=== PATIENT | female | born 1955 | race Caucasian/White ===

== ENCOUNTER → 2018-06-23 | Outpatient (CLI) | payer BC ==
[~2018-06-23] MED LIST: BAYER ASPIRIN C81 MG PO; CLINDAMYCIN HC300 MG PO; LEVOTHYROXINE50 MCG PO; LIPITOR40 MG PO; LISINOPRIL20 MG PO; MULTIVITAMIN PO; NEURONTIN300 MG PO; QUNOL; VICODIN 5/500 505 MG PO; VICODIN 500 MG-1 TAB PO; VITAMIN C250 M2 PO; VITAMIN D50000 UNIT PO; [UNRECOGNIZED DRUG - OTHER]
== END | disposition home or self-care (01) ==
LOC: MAMMO 08:19
DX: Z12.31 Encounter for screening mammogram for malignant neoplasm of breast (principal)

== ENCOUNTER → 2018-07-08 | Outpatient (CLI) | payer BC | END | disposition home or self-care (01) | LOC: MAMMO 09:30 → US 10:30 → MAMMO 12:34 | DX: R92.8 Other abnormal and inconclusive findings on diagnostic imaging of breast (principal) ==

== ENCOUNTER → 2018-07-28 | Day surgery (SDC) | payer BC ==
[~2018-07-28] VITALS: Ht 160 cm; Wt 106.6 kg
--- NOTE | ~2018-07-28 | O ---
[place], [place] OPERATIVE NOTE NAME: MICHELLE WERNER UNIT #: [id number] ROOM: DOCTOR: STEFANI SOLANO MD BIRTHDATE: [birth year] DOS: 07/28/2018 HISTORY OF PRESENT ILLNESS: This is a 62-year-old patient who presented with colon screening undergone investigation. ALLERGIES: No known medication. FAMILY HISTORY: Noncontributory. PAST SURGICAL HISTORY: Tubal ligation. PAST MEDICAL HISTORY: Hypertension, hypercholesterolemia, hypothyroidism, cerebrovascular accident. SOCIAL HISTORY: Stopped smoking 2 years ago. Alcohol, none. PROCEDURE: Today's procedure part of investigation is colonoscopy plus polypectomy. PREMEDICATION: Propofol. SCOPE: Olympus forward-viewing colonoscope 10L video. REPORT: After putting the patient in left lateral position and application of lubricant to the scope, the scope was introduced. Thereafter, under direct visualization, advanced through the length of colon. Tortuous colon was identified. Base of the cecum explored, appendiceal orifice identified, ileocecal valve was defined. Air was gradually suctioned out from ascending, transverse, descending colon to assess sessile polypoid lesion in the rectum with piecemeal polypectomy removed. The patient was extubated and tolerated the procedure well. IMPRESSION: Tortuous colon, sessile polypoid lesion, rectal pouch is status post 2 piecemeal polypectomy. PLAN AND DISCUSSION: High fiber fruit diet. ACTIVITY: Ad massimo. FOLLOWUP: Routinely with you in office, p.r.n. visit with us in [facility]. The patient was advised to observe lower calorie for possibility of weight loss. [place], [place] OPERATIVE NOTE NAME: MICHELLE WERNER UNIT #: [id number] ROOM: DOCTOR: STEFANI SOLANO MD BIRTHDATE: [birth year] STEFANI SOLANO MD CM:OPRECORD:OPERATIVE NOTE [id number] STEFANI SOLANO MD 07/28/18 1142 interface
[2018-07-28 08:54] VITALS: BP 136/70
[2018-07-28 11:08] VITALS: BP 123/67
[2018-07-28 11:23] VITALS: BP 129/76
[2018-07-28 11:38] VITALS: BP 131/73
== END | disposition home or self-care (01) ==
LOC: SDC 07-23 10:15
DX: Z12.11 Encounter for screening for malignant neoplasm of colon (principal); D12.8 Benign neoplasm of rectum; K63.89 Other specified diseases of intestine; I10 Essential (primary) hypertension; E78.00 Pure hypercholesterolemia, unspecified; J44.9 Chronic obstructive pulmonary disease, unspecified; E03.9 Hypothyroidism, unspecified; E66.01 Morbid (severe) obesity due to excess calories; Z98.51 Tubal ligation status; Z87.891 Personal history of nicotine dependence; Z86.73 Personal history of transient ischemic attack (TIA), and cerebral infarction without residual deficits; Z68.41 Body mass index [BMI] 40.0-44.9, adult; Z79.899 Other long term (current) drug therapy